=== PATIENT | female | born 1940 | race Hispanic/Latino ===

== ENCOUNTER 2017-02-14 13:27 | Observation (INO) | payer MEDICARE, OTHER ==
[2017-02-14 14:08] LABS: #Basophils 0.1 thou/uL (0.0-0.2); #Eosinphils 0.1 thou/uL (0.0-0.7); #Lymphocytes 1.9 thou/uL (1.20-3.40); #Monocytes 0.8 thou/uL (0.11-0.59); #Neutrophils 6.7 thou/uL (1.40-6.50); %Basophils 0.7 % (0.0-1.0); %Eosinophils 1.2 % (0.0-10.0); %Lymphocytes 19.5 % (21.0-51.0); %Monocytes 8.3 % (0.0-10.0); %Neutrophils 70.3 % (42.0-75.0); Hemoglobin 13.5 g/dL (12.0-16.0); Mean Corpuscular HGB CONC 32.7 g/dL (32.0-36.0); Mean Corpuscular Hemoglobin 31.1 pg (27.0-31.0); Mean Corpuscular Volume 95.2 fl (81.0-99.0); Mean Platelet Volume 8.2 fL (7.4-10.4); Platelet Count 285 thou/uL (130-400); RBC Distribution Width 12.3 % (11.5-14.5); Red Blood Cell (RBC) Count 4.34 mill/uL (4.20-5.40); White Blood Cell (WBC) Count 9.6 thou/uL (4.8-10.8)
[2017-02-14 14:34] LABS: ALT (SGPT) 17 U/L (8-55); AST (SGOT) 13 U/L (5-34); Albumin 3.3 g/dL (3.4-4.8); Alkaline Phosphatase 88 U/L (40-150); Anion Gap 12 mmol/L (10-20); BUN (Urea Nitrogen) 20 mg/dL (9.8-20.1); Bilirubin, Total 0.4 mg/dL (0.2-1.2); Calc. Creatinine Clearance 0 mL/min (70-130); Calcium 8.5 mg/dL (7.8-10.44); Carbon Dioxide 23 mmol/L (23-31); Chloride 105 mmol/L (98-107); Estimated GFR-MDRD 36; Globulin 3.3 g/dL (2.4-3.5); Glucose 260 mg/dL (83-110); Potassium 4.1 mmol/L (3.5-5.1); Protein, Total 6.6 g/dL (6.0-8.3); Sodium 136 mmol/L (136-145)
--- NOTE | 2017-02-14 14:35 | CT ---
CT HEAD NONCONTRAST: History: Altered mental status. Syncope. Comparison: 09-15-16 FINDINGS: There is no evidence of acute intracranial hemorrhage or infarct. Diffuse cortical atrophy and promin ent chronic ischemic small vessel disease are again demonstrated. There is no mass effect or shift of midline structures. Mild mucosal thickening is apparent within the ethmoid air cells. IMPRESSION: No acute intracranial abnormalities are demonstrated on noncontrast CT head. POS: [facility]
[2017-02-14 14:36] LABS: CKMB 1.1 ng/mL (0-6.6); Troponin I 0.011 ng/mL (< 0.028)
[2017-02-14 18:04] LABS: CKMB 1.7 ng/mL (0-6.6); Troponin I Less than 0.010 ng/mL (< 0.028)
[2017-02-14 19:01] VITALS: BMI 42.0
[2017-02-14] MEDS: Sodium Chloride 0.45% 1,000 ML IV SCH (20:13)
[2017-02-14 21:17] LABS: Troponin I 0.016 ng/mL (< 0.028)
[2017-02-15] MEDS ORDERED: Dextrose 5% in Water 1,000 ML IV PRN (02:46)
[2017-02-15] MEDS ORDERED: HumaLOG 300 UNITS/3 ML VIAL SC PRN ×2 (02:46)
[2017-02-15] MEDS ORDERED: Dextrose 50% Abboject 50 ML SYRINGE IVP PRN (02:46)
--- NOTE | 2017-02-15 03:26 | HP ---
CHIEF COMPLAINT: Syncope. HISTORY OF PRESENT ILLNESS: She is a 76-year-old woman has hypertension. She brought in because of witnessed syncope passed out for a few minutes in the chair, blood pressure running low. She brought in the ER, blood pressure running 90/71, pulse 77, respiration 20. She was given IV fluid in the ER and placed on 2 liter oxygen. She improved. PAST MEDICAL HISTORY: History of hypertension, congestive heart failure, diabetes. PAST SURGICAL HISTORY: History of cholecystectomy and appendectomy. SOCIAL HISTORY: She denies alcohol and drug, no smoking history. REVIEW OF SYSTEMS: Constitutional: Denies any chills, no fatigue, no fever. No eye pain or any vis ion changes. ENT: Negative for rhinorrhea. Sore throat. Cardiovascular: Negative for any chest p ain, palpitations. Respirations: Cough. No short of breath. Gastrointestinal: No diarrhea, no na usea, no vomiting. Musculoskeletal: No back pain. Neurological: She is wheelchair bound. No peres ge in mental status. Hematology: No rash. PHYSICAL EXAMINATION: GENERAL: When examined her she is an elderly woman nondistressed. VITAL SIGNS: Blood pressure 111/60, pulse 67, respiration 14. Sats 98 on 2 liters oxygen. HEENT: Head is atraumatic, normocephalic. Pupils are round, reactive. Extraocular muscles intact. Ear, nose, throat normal. Tongue mucosa moist. Neck: Supple, no JVD, no thyromegaly. RESPIRATORY: Chest, normal vascular breathing, no added sounds, no wheezing, no crackles. CARDIOVASCULAR: S1, S2 audible. No S3, S4. ABDOMEN: Soft, bowel sounds audible, no organomegaly. No nontender, no guarding, rigidity. EXTREMITIES: No pedal edema, no cyanosis or clubbing. CRANIAL NERVES SYSTEM: Alert x2. NEUROLOGIC: No focal deficit. PSYCHIATRIC: Affect normal. LABORATORY DATA: EKG shows rates at 72. First AV block, ST segment normal. Troponin 0.011, CK-MB 1 .1. Sodium 136, potassium 4.1, chloride 23, carbon dioxide 12 , anion gap is 20, creatinine 1.43, BU N 20, creatinine 36, glucose 260, calcium 8.5, bilirubin 0.4, albumin 3.3, AST 13, ALT 17, total bili cheung is 9.6, hemoglobin is 30.5, hematocrit is 41.3, MCV 95. ASSESSMENT AND PLAN: Syncope, etiology could be hypovolemia with acute kidney injury, so given IV fl uid. Follow up BMP and serial troponin, less hypertension. We are holding lisinopril. Continue to monitor her blood pressure, IV fluid.
[2017-02-15] MEDS: Sodium Chloride 0.45% 1,000 ML IV SCH ×2 (03:51→12:58)
[2017-02-15] MEDS ORDERED: Acetaminophen 325 MG TAB PO PRN (03:53)
[2017-02-15 05:41] LABS: Anion Gap 10 mmol/L (10-20); BUN (Urea Nitrogen) 21 mg/dL (9.8-20.1); Calc. Creatinine Clearance 105 mL/min (70-130); Calcium 8.6 mg/dL (7.8-10.44); Carbon Dioxide 24 mmol/L (23-31); Chloride 108 mmol/L (98-107); Estimated GFR-MDRD 66; Glucose 194 mg/dL (83-110); Sodium 138 mmol/L (136-145)
--- NOTE | 2017-02-15 13:14 | PDOC.PN ---
- Subjective Encounter Start Date: 02/15/17 Encounter Start Time: 13:13 Subjective: Pt seen and examined for Syncope, Now c/o chest pain, not feeling good -: pt feels anxiuos,denies any N/V/D - Objective MAR Reviewed: Yes Vital Signs & Weight: Vital Signs (12 hours) Temp Pulse Resp BP BP BP Pulse Ox 02/15/17 12:50 169/67 H 02/15/17 11:20 97.9 F 69 20 173/82 H 98 02/15/17 08:00 97.3 F L 63 16 02/15/17 07:31 97.3 F L 63 16 166/72 H 97 02/15/17 03:40 60 18 168/73 H 98 Weight Weight 253 lb I&O: 02/14/17 02/15/17 02/16/17 06:59 06:59 06:59 Intake Total 2150 Output Total 500 Balance 1650 Result Diagrams: 02/14/17 14:00 02/15/17 05:03 Phys Exam - Physical Examination HEENT: PERRLA, moist MMs, sclera anicteric, TM's clear, oral pharynx no lesions , 2+ tonsils Neck: no nodes, no JVD, supple, full ROM Respiratory: no wheezing, no rales, no rhonchi, wheezing present, clear to auscultation bilateral Cardiovascular: RRR, no significant murmur, no rub, gallop, irregular Gastrointestinal: soft, non-tender, no distention, positive bowel sounds Musculoskeletal: no edema, pulses present, edema present Psychiatric: normal affect, A&O x 3 Skin: no rash, normal turgor, cap refill <2 seconds Dx/Plan (1) Syncope and collapse Code(s): R55 - SYNCOPE AND COLLAPSE Status: Acute (2) CKD (chronic kidney disease) stage 3, GFR 30-59 ml/min Status: Acute (3) Chest pain Code(s): R07.9 - CHEST PAIN, UNSPECIFIED Status: Acute - Plan cont current plan of care, plan discussed w/ family, DVT proph w/lovenox 1) Syncope Etiology Hypovolemia, IV Fluids -: 2) JOSÉ , improved with IV Fluids -: 3) Chest pain, Cardiology consulted * .
[2017-02-15] MEDS ORDERED: Ketorolac Tromethamine 30 MG/ML VIAL IVP SCH (16:15)
--- NOTE | 2017-02-15 19:02 | CON ---
DATE OF CONSULTATION: 02/15/2017 PRIMARY MANAGER MANAGED BACKUP SERVICES: None. REASON FOR CONSULTATION: Syncope. HISTORY OF PRESENT ILLNESS: Ms. Greenfield is a very pleasant 76-year-old woman, who has now been seen and evaluated by Cardiology in the past. She states that she was in her Hoveround chair when she had a syncopal episode. She then had nausea and vomiting. She does not know which came first. She is unsure whether the nausea preceded the vomiting or some of the syncope preceded the vomiting vice rex sa. No chest pain or pressure noted. No other associated ameliorating or exacerbating factors prese nt. Her EKG appears to be within normal limits. PAST MEDICAL HISTORY: Hypertension, diabetes mellitus, congestive heart failure. PAST SURGICAL HISTORY: Cholecystectomy and appendectomy. SOCIAL HISTORY: No current tobacco or alcohol use. HOME MEDICATIONS: Include clonidine, lisinopril, Levemir, gabapentin, carvedilol. REVIEW OF SYSTEMS: Ten-point review of systems is reviewed and as above, otherwise negative. PHYSICAL EXAMINATION: VITAL SIGNS: Blood pressure 155/69, pulse 76, temperature 98.1. GENERAL: Patient is a pleasant female who is in no acute distress. The patient appears her stated a ge. NEUROLOGIC: The patient is alert and oriented times 3 with no focal neurologic deficits. HEENT: Sclerae without icterus. Mouth has moist mucous membranes with normal pallor. NECK: No JVD. Carotid upstroke brisk. No bruits bilaterally. LUNGS: Clear to auscultation with unlabored respirations. BACK: No scoliosis or kyphosis. CARDIAC: Regular rate and rhythm with normal S1 and S2. No S3 or S4 noted. No significant rubs, mu rmurs, thrills, or gallops noted throughout the precordium. PMI is not displaced. There is no antonio ternal heave. ABDOMEN: Soft, nontender, nondistended. No peritoneal signs present. No hepatosplenomegaly. No ab normal striae. EXTREMITIES: 2+ femoral and 2+ dorsalis pedis pulses. No cyanosis, clubbing, or edema. SKIN: No gross abnormalities. PERTINENT LABORATORY DATA: Hemoglobin 13.5, hematocrit 41.3. IMAGING: EKG; normal sinus rhythm, normal EKG. IMPRESSION: 1. Syncope. 2. Nausea, vomiting. 3. Atypical chest pain. RECOMMENDATIONS: Ms. Greenfield's EKG appears to be within normal limits. She is on 2 medications that may have potentiallyl caused the bradycardiac episode, which are clonidine and Coreg. At this point , we would recommend decrease in clonidine to 0.1 mg one p.o. q.a.m. and watching and monitoring her blood pressure. We would recommend Norvasc in place of clonidine. We would monitor rhythm overnight . We would recommend an echo Doppler to assess LV function. If her LVEF is normal and rate overnigh t is stable, we would recommend 3-week outpatient event recorder.
[2017-02-15] MEDS ORDERED: cloNIDine 0.1 MG TAB PO PRN (19:55)
[2017-02-15] MEDS: Gabapentin 300 MG CAP PO SCH (20:04)
[2017-02-15] MEDS: Lisinopril 10 MG TAB PO SCH (20:04)
[2017-02-15] MEDS: Carvedilol 3.125 MG TAB PO SCH (20:04)
[2017-02-16] MEDS: Lisinopril 10 MG TAB PO SCH (08:16)
[2017-02-16] MEDS: Carvedilol 3.125 MG TAB PO SCH (08:16)
[2017-02-16] MEDS: Gabapentin 300 MG CAP PO SCH (08:16)
[2017-02-16 11:16] VITALS: BP 176/81; TEMP 97.6
--- NOTE | 2017-02-16 14:34 | PRG ---
DATE OF SERVICE: 02/16/2017 SUBJECTIVE: Ms. Greenfield is doing well. No chest pain or pressure noted. No recurrent syncope. She did tilt from 170 down to 150 upon standing. She was asymptomatic. PHYSICAL EXAMINATION: VITAL SIGNS: Blood pressure 150/69, pulse 76, temperature 97.6. LUNGS: Clear to auscultation. CARDIAC: Regular rate and rhythm. ABDOMEN: Soft, nontender, nondistended. EXTREMITIES: No edema. IMPRESSION: Syncope. RECOMMENDATIONS: Etiology is unknown. She has been on clonidine and Coreg. This may have had a bra dycardic induced episode. I have decreased her carvedilol in addition to her clonidine. I have adde d Norvasc for her blood pressure. This may also be related to dehydration versus orthostatic hypoten flavio. A drop from 170 to 150 should not cause symptoms though. Would recommend a 3-week event recor lidia to assess for dysrhythmias. We will follow Ms. Greenfield in the next 1-2 weeks.
[2017-02-16] MEDS ORDERED: cloNIDine 0.2 MG TAB PO SCH (15:00)
[2017-02-16] MEDS ORDERED: Carvedilol 3.125 MG TAB PO SCH (21:00)
[2017-02-16] MEDS ORDERED: Lisinopril 20 MG TAB PO SCH (21:00)
[2017-02-16] MEDS ORDERED: GABAPENTIN 300 MG PO SCH (21:00)
[2017-02-16] MEDS ORDERED: Non-Formulary Item 1 EACH (Levemir Flexpen [Levemir Flexpen] 40 UNITS) SQ SCH (21:00)
--- NOTE | 2017-02-16 22:38 | DIS ---
DATE OF ADMISSION: 02/14/2017 DATE OF DISCHARGE: 02/16/2017 ADMITTING DIAGNOSES: 1. Syncopal episode. 2. Chest pain. 3. Acute kidney injury. HOSPITAL COURSE: She is a 76-year-old woman, came in because she passed out and she found to have dehydration in the hospital stay. When she came in, her kidney function was high. Creatinine was 1.43, BUN 20, and glucose 260, so came to the hospital, gave some IV fluids. She improved creatinine to 0.84. Cardiology consult for chest pain. The echocardiogram was done and that came back normal. Plan to discharge home. PHYSICAL EXAMINATION DISCHARGE VITAL SIGNS: Pulse 76, blood pressure 153/69, respiration 20, temperature 98.5. GENERAL: Alert and oriented. NECK: Supple, no JVD. CHEST: Chest has normal respiratory sounds. CARDIOVASCULAR: S1, S2 audible. No S3, S4. ABDOMEN: Soft. EXTREMITIES: No pedal edema. LABORATORY: Lab shows glucose 130, potassium 4.0, chloride 108, BUN 21, creatinine 0.8, glucose 194. Troponin less than 0.01. Echocardiogram normal. DISCHARGE MEDICATIONS: Will be Coreg 3.125 mg twice daily, clonidine 0.1 t.i.d. , gabapentin 300 mg b.i.d., insulin sliding scale, lisinopril 10 mg every day, _ ____ 20 mg b.i.d. FINAL DIAGNOSES: 1. Syncope secondary to hypovolemia 2. Acute kidney injury improved 3. Chest pain. OH is ruled out 4. Hypertension. 5. Type 2 diabetes. PLAN: Discharge home and to follow with his PCP in 1 week. BREANA
== END 2017-02-16 12:14 | disposition home or self-care (01) ==
LOC: ERS 13:27 → 2SW 18:46
PROVIDERS: ADMIT Family Medicine; ATTEND Family Medicine
DX: E86.1 Hypovolemia (principal); R55 Syncope and collapse; N17.9 Acute kidney failure, unspecified; R07.9 Chest pain, unspecified; I13.0 Hypertensive heart and chronic kidney disease with heart failure and stage 1 through stage 4 chronic kidney disease, or unspecified chronic kidney disease; E11.22 Type 2 diabetes mellitus with diabetic chronic kidney disease; N18.3 Chronic kidney disease, stage 3 (moderate); I50.9 Heart failure, unspecified; Z79.4 Long term (current) use of insulin; Z79.899 Other long term (current) drug therapy; Z88.2 Allergy status to sulfonamides; Z88.5 Allergy status to narcotic agent; Z91.013 Allergy to seafood; Z91.041 Radiographic dye allergy status; Z90.49 Acquired absence of other specified parts of digestive tract; Z90.89 Acquired absence of other organs; Z90.710 Acquired absence of both cervix and uterus; Z98.890 Other specified postprocedural states; Z99.3 Dependence on wheelchair
CPT/HCPCS: 70450; 80048; 80053; 82553 ×2; 82962 ×2; 84484 ×2; 85025; 93005; 93306; 94760; 96361 ×3; 96374; 99285; G0378; 36415; 36416; 96360; J1885

== ENCOUNTER 2017-05-06 10:18 | Emergency (ER) | payer MEDICARE, OTHER ==
[2017-05-06 10:53] LABS: #Basophils 0.1 thou/uL (0.0-0.2); #Eosinphils 0.2 thou/uL (0.0-0.7); #Monocytes 0.7 thou/uL (0.11-0.59); #Neutrophils 5.1 thou/uL (1.40-6.50); %Basophils 0.7 % (0.0-1.0); %Eosinophils 2.6 % (0.0-10.0); %Lymphocytes 25.2 % (21.0-51.0); %Monocytes 8.6 % (0.0-10.0); %Neutrophils 62.8 % (42.0-75.0); Hemoglobin 11.9 g/dL (12.0-16.0); Mean Corpuscular HGB CONC 32.9 g/dL (32.0-36.0); Mean Corpuscular Hemoglobin 30.6 pg (27.0-31.0); Mean Corpuscular Volume 92.9 fl (81.0-99.0); Mean Platelet Volume 7.7 fL (7.4-10.4); Platelet Count 264 thou/uL (130-400); RBC Distribution Width 12.9 % (11.5-14.5); White Blood Cell (WBC) Count 8.1 thou/uL (4.8-10.8)
[2017-05-06 11:06] LABS: ALT (SGPT) 12 U/L (8-55); AST (SGOT) 13 U/L (5-34); Albumin 3.2 g/dL (3.4-4.8); Alkaline Phosphatase 92 U/L (40-150); Anion Gap 13 mmol/L (10-20); BUN (Urea Nitrogen) 27 mg/dL (9.8-20.1); Bilirubin, Total 0.4 mg/dL (0.2-1.2); Calc. Creatinine Clearance 0 mL/min (70-130); Carbon Dioxide 18 mmol/L (23-31); Chloride 109 mmol/L (98-107); Estimated GFR-MDRD 50; Globulin 3.3 g/dL (2.4-3.5); Glucose 184 mg/dL (83-110); Potassium 4.3 mmol/L (3.5-5.1); Protein, Total 6.5 g/dL (6.0-8.3); Sodium 136 mmol/L (136-145)
[2017-05-06 11:11] LABS: CKMB 1.1 ng/mL (0-6.6); Troponin I Less than 0.010 ng/mL (< 0.028)
[2017-05-06] MEDS ORDERED: Ondansetron HCl/PF 4 MG/2 ML Vial ONE (13:00)
--- NOTE | 2017-05-06 13:24 | RAD ---
CHEST 1 VIEW: HISTORY: A 76-year-old female with a history of chest pain. COMPARISON: 09/06/16. FINDINGS: Atherosclerosis of the aorta with ectasia. Old granulomatous disease. Monitor leads overlie the giuseppe st. No confluent pneumonia, overt edema, or pleural effusion. IMPRESSION: No acute intrathoracic disease. Atherosclerosis of the aorta. Stable from prior study. POS: [facility]
--- NOTE | 2017-05-06 14:10 | CT ---
BRAIN CT WIHTOUT IV CONTRAST: HISTORY: A 76-year-old female with a history of syncope. History of CVA 3 weeks ago with chest pain, weakness , tiredness. COMPARISON: 02/14/17. FINDINGS: Atrophy and chronic white matter ischemic changes are noted. No focal mass or midline shift. No intr a- or extraaxial hemorrhage. Sinuses and mastoids are clear of acute process. IMPRESSION: Stable atrophy and chronic white matter ischemic change. No mass or bleed or other acute process. POS: [facility]
[2017-05-06 14:27] LABS: CKMB 1.5 ng/mL (0-6.6); Troponin I Less than 0.010 ng/mL (< 0.028)
--- NOTE | 2017-05-06 16:03 | ULT ---
BILATERAL LOWER EXTREMITY VENOUS DUPLEX ULTRASOUND INCLUDING COLOR AND SPECTRAL DOPPLER IMAGIN05/06/17 HISTORY: 76-year-old female with history of syncope and congestive heart failure. COMPARISON: 05/13/13. FINDINGS: Exam includes color and spectral doppler imaging. Exam performed from groin to ankle including visualized greater saphenous, common femoral, superficia l femoral, profunda femoral, popliteal, trifurcation, and posterior tibial vein regions. Phasic flow with normal compressibility and normal augmentation at all levels. No intraluminal thrombus. Minimal areas of flow reversal suggesting some valvular incompetence. IMPRESSION: No evidence for deep venous thrombosis. POS: [facility]
--- NOTE | 2017-05-06 17:32 | NM ---
VENTILATION PERFUSION LUNG SCAN 05/06/17 HISTORY: 76-year-old female with history of chest pain. Patient inhaled approximately 13.0 millicuries Xenon 133 gas. There is slight trapping in the lower l jen zones bilaterally. PERFUSION LUNG SCAN: Patient was injected with 6.6 millicuries technetium 99m MAA intravenously. No segmental or large are as of absolute perfusion defect. IMPRESSION: Findings consistent with a very low probability of acute PE. POS: [facility]
== END 2017-05-06 16:00 | disposition home or self-care (01) ==
LOC: ERS 10:18
DX: R07.9 Chest pain, unspecified (principal); R53.1 Weakness; I11.0 Hypertensive heart disease with heart failure; I50.9 Heart failure, unspecified; E11.9 Type 2 diabetes mellitus without complications; Z79.899 Other long term (current) drug therapy
CPT/HCPCS: 51701; 70450; 71045; 78582; 80053; 82553 ×2; 83880; 84484 ×2; 85025; 85379; 93005; 93970; 96361; 96374; 99285; A9540; A9558; 36415; A4353; J2405

== ENCOUNTER 2018-12-13 21:02 | Observation (INO) | payer MEDICARE, OTHER ==
--- NOTE | 2018-12-13 22:22 | CT ---
NONCONTRAST CT HEAD: 12/13/18 HISTORY: Headache for three days. COMPARISON: 05/06/17. FINDINGS: Again noted is diminished attenuation of the periventricular white matter which is nonspecific but li caesar related to advanced chronic small vessel ischemic change. There is no evidence of an acute corti maximiliano infarction, hemorrhage, mass effect, or midline shift. Mild cerebral volume loss is present. The ventricular system is normal in size, shape and position for the degree of sulcal atrophy. Mucosal thickening is seen in the ethmoidal air cells bilaterally. The mastoid air cells are clear. Calvarial structures have a normal appearance. IMPRESSION: No acute intracranial abnormality is demonstrated. POS: [facility]
[2018-12-13 22:38] LABS: #Eosinphils 0.4 thou/uL (0.0-0.7); #Lymphocytes 1.9 thou/uL (1.20-3.40); #Monocytes 0.8 thou/uL (0.11-0.59); #Neutrophils 5.6 thou/uL (1.40-6.50); %Basophils 0.5 % (0.0-1.0); %Eosinophils 4.2 % (0.0-10.0); %Lymphocytes 22.1 % (21.0-51.0); %Monocytes 8.6 % (0.0-10.0); %Neutrophils 64.6 % (42.0-75.0); Hemoglobin 12.4 g/dL (12.0-16.0); Mean Corpuscular HGB CONC 32.1 g/dL (32.0-36.0); Mean Corpuscular Hemoglobin 29.2 pg (27.0-31.0); Mean Corpuscular Volume 91.2 fL (78.0-98.0); Mean Platelet Volume 7.8 fL (7.4-10.4); Platelet Count 289 thou/uL (130-400); RBC Distribution Width 12.8 % (11.5-14.5); Red Blood Cell (RBC) Count 4.25 mill/uL (4.20-5.40); White Blood Cell (WBC) Count 8.6 thou/uL (4.8-10.8)
[2018-12-13 22:59] LABS: ALT (SGPT) 13 U/L (8-55); AST (SGOT) 14 U/L (5-34); Albumin 3.5 g/dL (3.4-4.8); Alkaline Phosphatase 119 U/L (40-110); Anion Gap 11 mmol/L (10-20); BUN (Urea Nitrogen) 18 mg/dL (9.8-20.1); Bilirubin, Total 0.4 mg/dL (0.2-1.2); Calc. Creatinine Clearance 0 mL/min (70-130); Calcium 8.8 mg/dL (7.8-10.44); Carbon Dioxide 23 mmol/L (23-31); Chloride 109 mmol/L (98-107); Estimated GFR-MDRD 72; Glucose 119 mg/dL (83-110); Potassium 3.8 mmol/L (3.5-5.1); Protein, Total 7.5 g/dL (6.0-8.3); Sodium 139 mmol/L (136-145)
[2018-12-13] MEDS ORDERED: diphenhydrAMINE 50 MG/ML VIAL ONE (23:13)
[2018-12-13] MEDS ORDERED: Prochlorperazine 10 MG/2 ML VIAL IVP SCH (23:30)
[2018-12-14] MEDS ORDERED: Aspirin Chewable 81 MG TAB ONE (00:13)
[2018-12-14] MEDS ORDERED: Acetaminophen 1,000 MG in Premix Bag 1 BAG IVPB SCH (00:30)
[2018-12-14 01:42] LABS: PTT 29.9 SEC (22.9-36.1); Prothrombin Time 13.6 SEC (12.0-14.7)
[2018-12-14] MEDS ORDERED: Acetaminophen 650 MG Suppository PR PRN (03:16)
[2018-12-14] MEDS ORDERED: Ondansetron ODT 4 MG TAB PO PRN (03:16)
[2018-12-14] MEDS ORDERED: Ondansetron PF 4 MG/2 ML Vial IVP PRN (03:16)
[2018-12-14 04:00] LABS: Troponin I Less than 0.010 ng/mL (< 0.028)
[2018-12-14] MEDS: Sodium Chloride 0.9% 1,000 ML IV SCH (04:01)
[2018-12-14] MEDS ORDERED: Dextrose 50% Abboject 50 ML SYRINGE SLOW IVP PRN (04:43)
[2018-12-14] MEDS ORDERED: HumaLOG 300 UNITS/3 ML VIAL SC PRN (04:43)
[2018-12-14] MEDS ORDERED: Dextrose 5% in Water 1,000 ML IV PRN (04:43)
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
[2018-12-14 06:26] LABS: #Basophils 0.1 thou/uL (0.0-0.2); #Eosinphils 0.4 thou/uL (0.0-0.7); #Lymphocytes 1.9 thou/uL (1.20-3.40); #Monocytes 0.7 thou/uL (0.11-0.59); #Neutrophils 4.1 thou/uL (1.40-6.50); %Eosinophils 5.3 % (0.0-10.0); %Lymphocytes 26.2 % (21.0-51.0); %Monocytes 10.1 % (0.0-10.0); %Neutrophils 57.4 % (42.0-75.0); Hemoglobin 12.4 g/dL (12.0-16.0); Mean Corpuscular HGB CONC 33.7 g/dL (32.0-36.0); Mean Corpuscular Hemoglobin 31.2 pg (27.0-31.0); Mean Corpuscular Volume 92.6 fL (78.0-98.0); Platelet Count 242 thou/uL (130-400); RBC Distribution Width 12.7 % (11.5-14.5); Red Blood Cell (RBC) Count 3.98 mill/uL (4.20-5.40); White Blood Cell (WBC) Count 7.2 thou/uL (4.8-10.8)
[2018-12-14 06:40] LABS: Anion Gap 12 mmol/L (10-20); BUN (Urea Nitrogen) 15 mg/dL (9.8-20.1); Calc. Creatinine Clearance 116 mL/min (70-130); Calcium 8.3 mg/dL (7.8-10.44); Carbon Dioxide 19 mmol/L (23-31); Cardiac Risk 3.9 (Less than 4.5); Chloride 113 mmol/L (98-107); Cholesterol 126 mg/dl (< 200 Desired); Estimated GFR-MDRD 79; Glucose 110 mg/dL (83-110); HDL Cholesterol 32 mg/dL (>60 Neg Risk); LDL Cholesterol, Calculated 78 mg/dL; Magnesium 1.7 mg/dL (1.6-2.6); Potassium 3.9 mmol/L (3.5-5.1); Sodium 140 mmol/L (136-145); Triglycerides 79 mg/dL (Less than 150)
[2018-12-14 06:43] LABS: Troponin I 0.014 ng/mL (< 0.028)
--- NOTE | 2018-12-14 08:46 | ULT ---
CAROTID ARTERIAL DOPPLER ULTRASOUND: 12/14/2018 HISTORY: Transient ischemic attack. TECHNIQUE: Multiplanar pate-scale sonographic imaging of the arterial structures of the neck obtained with color -flow and spectral analysis. FINDINGS: Antegrade blood flow and normal arterial wave-forms are documented within the carotid and vertebral s ystem bilaterally. VESSEL PEAK SYSTOLIC VELOCITY (cm per second) Right CCA 78 Right ICA 73 Right ECA 63 Left CCA 69 Left ICA 56 Left ECA 96 ICA/CCA ratio is or 0.9 on the right and 0.8 on the left. IMPRESSION: No hemodynamically significant stenosis on the basis of sonographic velocity criteria. Transcribed Date/Time: 12/14/2018 9:37 AM
[2018-12-14] MEDS: cloNIDine 0.1 MG TAB PO SCH ×4 (08:47→20:56)
[2018-12-14] MEDS: Gabapentin 300 MG CAP PO SCH ×4 (08:47→20:56)
[2018-12-14] MEDS: Carvedilol 6.25 MG TAB PO SCH ×3 (08:48→16:10)
[2018-12-14] MEDS: Lisinopril 20 MG TAB PO SCH ×3 (08:48→20:56)
[2018-12-14] MEDS: Famotidine/PF 20 mg/2ml Vial SLOW IVP SCH ×2 (08:48→20:56)
[2018-12-14] MEDS: Furosemide 20 MG TAB PO SCH ×3 (08:48→20:57)
[2018-12-14] MEDS: Atorvastatin Calcium 40 MG TAB PO SCH ×2 (08:48→08:54)
[2018-12-14] MEDS: Amlodipine 10 MG TAB PO SCH ×2 (08:48→08:53)
[2018-12-14] MEDS: Aspirin 81 mg Enteric Coated Tablet PO SCH ×2 (08:48→08:54)
[2018-12-14] MEDS ORDERED: FLU VACC TS2019-20(65YR UP)/PF 180 MCG/0.5 ML SYRINGE IM ONE (09:00)
[2018-12-14] MEDS: Acetaminophen 325 MG TAB PO PRN ×2 (12:31→20:56)
[2018-12-14] MEDS ORDERED: Lorazepam 2 MG/ML VIAL SLOW IVP PRN (14:53)
[2018-12-14 15:04] VITALS: BMI 41.3
--- NOTE | 2018-12-14 16:04 | PDOC.HOSPP ---
- Subjective Encounter Date: 12/14/18 Encounter Time: 16:02 Subjective: Ms. Greenfield was seen today in follow-up of severe headache. She denies any nausea or vomiting, no photophobia. She does not have any weakness in any extremities. - Objective Vital Signs & Weight: Vital Signs (12 hours) Temp Pulse Resp BP Pulse Ox 12/14/18 14:40 147/67 H 12/14/18 11:02 97.7 F 65 16 180/75 H 96 12/14/18 08:53 54 L 12/14/18 07:22 97.6 F 54 L 14 137/63 97 12/14/18 04:03 97.5 F L 56 L 18 140/61 96 Weight Admit Weight 250 lb Weight 248 lb 1.6 oz I&O: 12/13/18 12/14/18 12/15/18 06:59 06:59 06:59 Intake Total 204 Output Total 1000 1600 Balance -796 -1600 Result Diagrams: 12/14/18 06:15 12/14/18 06:15 Additional Labs: Accuchecks 12/14/18 12/14/18 10:31 06:16 POC Glucose 87 102 Hospitalist ROS - Medication Medications: Active Medications Generic Name Dose Route Start Last Admin Trade Name Freq PRN Reason Stop Dose Admin Acetaminophen 650 mg 12/14/18 03:16 12/14/18 12:31 Tylenol PO 650 mg Q4H PRN Administration Headache/Fever/Mild Pain (1-3) Amlodipine Besylate 10 mg 12/14/18 09:00 12/14/18 08:53 Norvasc PO Not Given DAILY [facility] Aspirin 81 mg 12/14/18 09:00 12/14/18 08:54 Ecotrin PO Not Given DAILY [facility] Atorvastatin Calcium 80 mg 12/14/18 09:00 12/14/18 08:54 Lipitor PO Not Given DAILY [facility] Clonidine 0.1 mg 12/14/18 09:00 12/14/18 12:32 Catapres PO 0.1 mg TID [facility] Administration Famotidine 20 mg 12/14/18 09:00 12/14/18 08:48 Pepcid SLOW IVP 20 mg Q12HR [facility] Administration Furosemide 20 mg 12/14/18 09:00 12/14/18 08:54 Lasix PO Not Given BID [facility] Gabapentin 600 mg 12/14/18 09:00 12/14/18 12:32 Neurontin PO 600 mg TID [facility] Administration Sodium Chloride 1,000 mls @ 65 mls/hr 12/14/18 03:30 12/14/18 04:01 Normal Saline 0.9% IV 1,000 mls .[id number] [facility] Administration Lisinopril 20 mg 12/14/18 09:00 12/14/18 08:54 Zestril PO Not Given BID [facility] - Exam Eye: PERRL, anicteric sclera Heart: RRR, no murmur, no gallops, no rubs, normal peripheral pulses Respiratory: CTAB, no wheezes, no rales, no ronchi, normal chest expansion, no tachypnea, normal percussion Gastrointestinal: soft, non-tender, non-distended, normal bowel sounds, no palpable masses, no hepatomegaly Extremities: no cyanosis, no clubbing, no edema Hosp A/P (1) Headache Code(s): R51 - HEADACHE Status: Acute (2) Hypertensive urgency Code(s): I16.0 - HYPERTENSIVE URGENCY Status: Acute (3) Diabetes 1.5, managed as type 2 Code(s): E13.9 - OTHER SPECIFIED DIABETES MELLITUS WITHOUT COMPLICATIONS Status: Chronic - Plan * Headache- ? etiology- await the MRI results * DM- blood glucose is stable * HTN- blood pressure is trending down
[2018-12-14] MEDS: Fioricet 325/50/40 mg Tablet PO PRN (17:59)
[2018-12-14] MEDS ORDERED: Non-Formulary Item 1 EACH (Levemir Flexpen [Levemir Flexpen] 40 UNITS) SQ SCH (21:00)
[2018-12-14] MEDS ORDERED: Insulin Glargine 40 UNITS in Pre-Filled Syringe 1 EACH SC SCH (21:00)
[2018-12-15] MEDS: Sodium Chloride 0.9% 1,000 ML IV SCH ×2 (00:30→14:24)
[2018-12-15] MEDS: Fioricet 325/50/40 mg Tablet PO PRN ×3 (01:48→12:20)
[2018-12-15] MEDS: Amlodipine 10 MG TAB PO SCH (08:02)
[2018-12-15] MEDS: Carvedilol 6.25 MG TAB PO SCH (08:02)
[2018-12-15] MEDS: Atorvastatin Calcium 40 MG TAB PO SCH (08:02)
[2018-12-15] MEDS: Aspirin 81 mg Enteric Coated Tablet PO SCH (08:02)
[2018-12-15] MEDS: cloNIDine 0.1 MG TAB PO SCH ×2 (08:02→14:24)
[2018-12-15] MEDS: Lisinopril 20 MG TAB PO SCH (08:03)
[2018-12-15] MEDS: Furosemide 20 MG TAB PO SCH ×2 (08:03→13:08)
[2018-12-15] MEDS: Gabapentin 300 MG CAP PO SCH ×2 (08:03→14:24)
[2018-12-15] MEDS: Famotidine/PF 20 mg/2ml Vial SLOW IVP SCH (08:04)
[2018-12-15] MEDS ORDERED: Ketorolac Tromethamine 30 MG/ML VIAL IVP SCH (12:15)
--- NOTE | 2018-12-15 12:15 | MRI ---
MRI BRAIN WITHOUT CONTRAST: Date: 12/15/18 HISTORY: TIA, headache. FINDINGS: Correlation is made with the CT brain of 12/13/18. No restricted diffusion is seen. There are changes of cortical atrophy and chronic small vessel ische jared disease. The ventricular size is appropriate and the basilar cisterns are patent. No evidence of acute infarct, hemorrhage, midline shift, or abnormal extra-axial fluid collections are seen. There i s mucosal disease in the paranasal sinuses. There is suggestion of an empty sella. IMPRESSION: No evidence of acute intracranial process. POS: [facility]
[2018-12-15 12:21] VITALS: BP 119/58; TEMP 97.2
[2018-12-15] MEDS ORDERED: Ketorolac Tromethamine 30 MG/ML VIAL ONE (12:25)
[2018-12-15] MEDS ORDERED: Prochlorperazine 10 MG/2 ML VIAL IVP SCH (14:30)
--- NOTE | 2018-12-15 20:31 | DIS ---
DATE OF ADMISSION: 12/14/2018 DATE OF DISCHARGE: 12/15/2018 DISCHARGE DIAGNOSES: 1. Tension headache, improved. 2. Hypertensive urgency, resolved. 3. Diabetes mellitus type 2, insulin requiring. CONSULTATIONS: None. PERTINENT LABORATORY AND X-RAY FINDINGS: Troponin I negative x3. BNP 29. Total cholesterol 126, triglyceride 79, HDL 32, LDL 78. CBC within normal limits. ESR 50. CT of the brain without contrast dated 12/13/2018, showed no acute intracranial process. MRI of the brain dated 12/15/2018, showed no acute intracranial process. Carotid Doppler study dated 12/14/2018, showed no hemodynamically significant stenosis. 2D transthoracic echocardiogram dated 12/15/2018, showed ejection fraction 55% to 60%. Diastolic dysfunction. Moderate left atrial enlargement. HOSPITAL COURSE: The patient was initially observed on the telemetry unit after presenting with headache. The patient was also noted with concomitant elevated blood pressures in the context of headache and treated for hypertensive urgency. Due to the patient's persistent symptoms and difficult to control headache, the patient underwent general stroke protocol with MRI and CT imaging of the brain. No focal evidence of a CVA or acute intracranial process was identified. The patient received IV and oral pain control with improvement in overall headache intensity by the time of discharge. The patient was ruled out for focal neurologic event as well as ruled out for evidence of TIA. The patient remained clinically stable during the hospital course, tolerating regular oral intake with stable vital signs. I have examined the patient at the time of discharge and discussed followup instructions. The patient verbalized understanding and in agreement, ready for discharge on 12/15/2018. DISCHARGE MEDICATIONS: 1. Amlodipine 10 mg p.o. daily. 2. Lipitor 80 mg p.o. daily. 3. Carvedilol 6.25 mg p.o. b.i.d. 4. Clonidine 0.1 mg p.o. t.i.d. 5. Lasix 20 mg p.o. b.i.d. 6. Gabapentin 600 mg p.o. t.i.d. 7. Levemir 40 units subcutaneously at bedtime. 8. Lisinopril 20 mg p.o. b.i.d.. 9. Compazine 10 mg p.o. q.6 hours p.r.n. headache. FOLLOWUP: The patient may follow up with her primary care provider, Dr. Dixon Ovalle within 7 days of discharge. CONDITION ON DISCHARGE: Stable. ACTIVITY: Ad-evgeny. DIET: ADA and heart healthy. CODE STATUS: Full. DISPOSITION: Home on 12/15/2018. Job ID: [id number]
== END 2018-12-15 16:13 | disposition home or self-care (01) ==
LOC: ERS 21:02 → 2SW 12-14 01:54
PROVIDERS: ADMIT Internal Medicine; ATTEND Internal Medicine
DX: G44.209 Tension-type headache, unspecified, not intractable (principal); I16.0 Hypertensive urgency; I11.0 Hypertensive heart disease with heart failure; I50.9 Heart failure, unspecified; E11.9 Type 2 diabetes mellitus without complications; Z79.4 Long term (current) use of insulin; Z79.899 Other long term (current) drug therapy; Z86.73 Personal history of transient ischemic attack (TIA), and cerebral infarction without residual deficits; Z88.2 Allergy status to sulfonamides; Z88.5 Allergy status to narcotic agent; Z91.013 Allergy to seafood; Z91.041 Radiographic dye allergy status; Z99.3 Dependence on wheelchair
CPT/HCPCS: 70450; 70551; 80048; 80053; 80061 ×2; 82962 ×2; 83735; 83880; 84484 ×2; 85025 ×2; 85610; 85652; 85730; 86140; 93306; 93880; 96361 ×3; 96365; 96375 ×3; 96376 ×2; 99285; G0378 ×3; 36415; 36416; J0131; J0780; J1200; J1815; J1885; Q0162; S0028

== ENCOUNTER 2019-09-14 11:27 | Emergency (ER) | payer MEDICARE ==
[2019-09-14 12:03] LABS: #Monocytes 0.6 thou/uL (0.11-0.59); #Neutrophils 4.4 thou/uL (1.40-6.50); %Basophils 0.3 % (0.0-1.0); %Eosinophils 0.4 % (0.0-10.0); %Lymphocytes 15.9 % (21.0-51.0); %Monocytes 9.3 % (0.0-10.0); %Neutrophils 74.1 % (42.0-75.0); Hemoglobin 13.4 g/dL (12.0-16.0); Mean Corpuscular HGB CONC 33.1 g/dL (32.0-36.0); Mean Corpuscular Hemoglobin 30.5 pg (27.0-31.0); Mean Platelet Volume 8.9 fL (7.4-10.4); Platelet Count 176 thou/uL (130-400); RBC Distribution Width 13.1 % (11.5-14.5); Red Blood Cell (RBC) Count 4.41 mill/uL (4.20-5.40)
[2019-09-14 12:38] LABS: ALT (SGPT) 25 U/L (8-55); AST (SGOT) 38 U/L (5-34); Albumin 3.5 g/dL (3.4-4.8); Alkaline Phosphatase 99 U/L (40-110); Anion Gap 12 mmol/L (10-20); BUN (Urea Nitrogen) 19 mg/dL (9.8-20.1); Bilirubin, Total 0.4 mg/dL (0.2-1.2); Calc. Creatinine Clearance 0 mL/min (70-130); Calcium 8.5 mg/dL (7.8-10.44); Carbon Dioxide 22 mmol/L (23-31); Chloride 108 mmol/L (98-107); Estimated GFR-MDRD 46; Globulin 4.2 g/dL (2.4-3.5); Glucose 167 mg/dL (83-110); Potassium 5.4 mmol/L (3.5-5.1); Protein, Total 7.7 g/dL (6.0-8.3); Sodium 137 mmol/L (136-145)
--- NOTE | 2019-09-14 12:38 | CT ---
CT OF THE BRAIN WITHOUT CONTRAST: INDICATION: History of hypotension and generalized weakness. COMPARISON: Prior CT of the brain dated 12/13/2018. 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 No defi nite acute infarct, hemorrhage, or hydrocephalus is present. No midline shift is evident. Paranasal sinuses and mastoid air cells are clear. IMPRESSION: No acute intracranial abnormality. POS: [facility]
[2019-09-14 13:25] LABS: Bacteria/HPF None Seen HPF (None Seen); Bilirubin Negative (Negative); Blood, Urine Negative (Negative); Clarity Clear (Clear); Glucose, Urine (Dipstick) Normal (Negative); Ketone, Urine Negative (Negative); Leukocyte Negative Leu/uL (Negative); Mucous/LPF 1+ LPF (<2+); Nitrite Negative (Negative); Protein, Urine (Dipstick) 30 mg/dL (Neg-Trace); RBC/HPF 0-3 HPF (0-3); Specific Gravity, Urine 1.019 (1.002-1.036); Urobilinogen Normal mg/dL (Less than 2)
== END 2019-09-14 15:20 | disposition home or self-care (01) ==
LOC: ERS 11:27
DX: I95.9 Hypotension, unspecified (principal); I11.0 Hypertensive heart disease with heart failure; I50.9 Heart failure, unspecified; E11.9 Type 2 diabetes mellitus without complications; Z79.4 Long term (current) use of insulin; Z86.73 Personal history of transient ischemic attack (TIA), and cerebral infarction without residual deficits; Z79.899 Other long term (current) drug therapy
CPT/HCPCS: 36416; 51701; 70450; 80053; 81003; 81015; 84484; 85025; 93005; 96360

== ENCOUNTER 2022-05-01 17:53 | Emergency (ER) | payer MEDICARE, OTHER ==
[2022-05-01 20:07] LABS: #Eosinphils 0.3 thou/uL (0.0-0.7); #Lymphocytes 2.3 thou/uL (1.20-3.40); #Monocytes 0.7 thou/uL (0.11-0.59); #Neutrophils 4.9 thou/uL (1.40-6.50); %Basophils 0.5 % (0.0-1.0); %Eosinophils 4.1 % (0.0-10.0); %Lymphocytes 27.8 % (21.0-51.0); %Monocytes 8.3 % (0.0-10.0); %Neutrophils 59.2 % (42.0-75.0); Hemoglobin 10.8 g/dL (12.0-16.0); Mean Corpuscular HGB CONC 32.4 g/dL (32.0-36.0); Mean Corpuscular Hemoglobin 26.6 pg (27.0-31.0); Mean Platelet Volume 9.9 fL (7.4-10.4); Platelet Count 217 10x3/uL (130-400); RBC Distribution Width 22.6 % (11.5-14.5); Red Blood Cell (RBC) Count 4.05 mill/uL (4.20-5.40); White Blood Cell (WBC) Count 8.2 10x3/uL (4.8-10.8)
[2022-05-01 20:16] LABS: ALT (SGPT) 16 U/L (8-55); AST (SGOT) 19 U/L (5-34); Albumin 3.5 g/dL (3.4-4.8); Alkaline Phosphatase 145 U/L (40-110); Anion Gap 13 mmol/L (10-20); BUN (Urea Nitrogen) 25 mg/dL (9.8-20.1); Bilirubin, Total 0.2 mg/dL (0.2-1.2); Calc. Creatinine Clearance 0 mL/min (70-130); Calcium 8.5 mg/dL (7.8-10.44); Carbon Dioxide 21 mmol/L (23-31); Chloride 109 mmol/L (98-107); Estimated GFR 65; Globulin 3.4 g/dL (2.4-3.5); Glucose 140 mg/dL (83-110); Potassium 4.2 mmol/L (3.5-5.1); Protein, Total 6.9 g/dL (5.8-8.1); Sodium 139 mmol/L (136-145)
[2022-05-01 20:28] LABS: Anisocytosis SLIGHT = 6-15 cells (100X) (0-5/hpf); Burr Cells SLIGHT = 2-5 cells (100X) (0-1/hpf); MDiff Complete? YES; Ovalocytes SLIGHT = 2-5 cells (100X) (0-1/hpf); Platelet Morphology Comment Appears Adequate; Polychromasia SLIGHT = 2-3 cells (100X) (0-2/hpf)
== END 2022-05-01 21:53 | disposition home or self-care (01) ==
LOC: ERS 17:53
DX: R55 Syncope and collapse (principal); D64.9 Anemia, unspecified; I10 Essential (primary) hypertension; E11.9 Type 2 diabetes mellitus without complications; Z79.82 Long term (current) use of aspirin; Z79.899 Other long term (current) drug therapy
CPT/HCPCS: 74176; 80053; 83605; 83880; 84484; 85025; 93005

== ENCOUNTER 2023-02-03 03:48 | Emergency (ER) | payer OTHER ==
[2023-02-03] MEDS ORDERED: Acetaminophen 500 MG TAB ONE (04:24)
[2023-02-03] MEDS ORDERED: Boostrix 0.5 ML (Tdap) VIAL (>/=7 yrs of age) ONE (04:24)
[2023-02-03 04:59] LABS: #Basophils 0.1 thou/uL (0.0-0.2); #Eosinphils 0.3 thou/uL (0.0-0.7); #Monocytes 0.7 thou/uL (0.11-0.59); #Neutrophils 5.3 thou/uL (1.40-6.50); %Basophils 0.8 % (0.0-1.0); %Eosinophils 3.5 % (0.0-10.0); %Lymphocytes 17.1 % (21.0-51.0); %Monocytes 9.1 % (0.0-10.0); %Neutrophils 69.1 % (42.0-75.0); Hemoglobin 11.5 g/dL (12.0-16.0); Mean Corpuscular HGB CONC 32.9 g/dL (32.0-36.0); Mean Corpuscular Hemoglobin 30.2 pg (27.0-31.0); Mean Corpuscular Volume 91.9 fl (78.0-98.0); Mean Platelet Volume 11.3 fL (7.4-10.4); Platelet Count 101 10x3/uL (130-400); Red Blood Cell (RBC) Count 3.81 mill/uL (4.20-5.40); White Blood Cell (WBC) Count 7.7 10x3/uL (4.8-10.8)
[2023-02-03 05:29] LABS: ALT (SGPT) 7 U/L (8-55); AST (SGOT) 13 U/L (5-34); Albumin 3.4 g/dL (3.4-4.8); Alkaline Phosphatase 135 U/L (40-110); Anion Gap 10 mmol/L (10-20); BUN (Urea Nitrogen) 11 mg/dL (9.8-20.1); Bilirubin, Total 0.5 mg/dL (0.2-1.2); CK (CPK) 39 U/L (29-168); Calc. Creatinine Clearance 0 mL/min (70-130); Calcium 8.7 mg/dL (7.8-10.44); Carbon Dioxide 25 mmol/L (23-31); Chloride 109 mmol/L (98-107); Estimated GFR 88; Globulin 2.9 g/dL (2.4-3.5); Glucose 96 mg/dL (83-110); Magnesium 1.7 mg/dL (1.6-2.6); Potassium 3.7 mmol/L (3.5-5.1); Protein, Total 6.3 g/dL (5.8-8.1); Sodium 140 mmol/L (136-145)
[2023-02-03 05:33] LABS: Troponin I 0.017 ng/mL (< 0.028)
[2023-02-03 05:56] LABS: INR-International Normal Ratio 1.1; Prothrombin Time 14.1 sec (12.0-14.7)
[2023-02-03 05:57] LABS: PTT 30.7 sec (22.9-36.1)
[2023-02-03 06:18] LABS: Bacteria/HPF None Seen HPF (None Seen); Bilirubin Negative (Negative); Blood, Urine Negative (Negative); CAUTI Indications for Culture Dysuria,urgency,freq; Clarity Clear (Clear); Glucose, Urine (Dipstick) Normal (Negative); Ketone, Urine Negative (Negative); Leukocyte 25 Leu/uL (Negative); Nitrite Negative (Negative); Protein, Urine (Dipstick) Negative (Neg-Trace); RBC/HPF 0-3 HPF (0-3); Squamous Epithelial 0-3 HPF (0-3); Urobilinogen Normal mg/dL (Less than 2); WBC/HPF 0-3 HPF (0-3); pH, Urine 7.5 (5.0-9.0)
[2023-02-03 06:20] LABS: Urine Culture Reflex No No
[2023-02-03 06:30] LABS: CellaVision Operator ID LAB.JMM; Macrocytosis SLIGHT = 6-15 cells HPF (0-5); Ovalocytes SLIGHT = 2-5 cells HPF (0-1); Platelet Adequacy Comment Platelets Decreased
== END 2023-02-03 07:10 | disposition home or self-care (01) ==
LOC: ERS 03:48
DX: S01.01XA Laceration without foreign body of scalp, initial encounter (principal); I10 Essential (primary) hypertension; E11.9 Type 2 diabetes mellitus without complications; W18.30XA Fall on same level, unspecified, initial encounter
CPT/HCPCS: 12001; 70450; 71045; 72125; 72170; 80053; 81001; 82550; 83735; 83880; 84484; 85025; 85610; 85730; 90471; 90715; 93005

== ENCOUNTER 2023-12-29 19:53 | Emergency (ER) | payer OTHER ==
[2023-12-29 21:11] LABS: #Basophils 0.09 10x3/uL (0.0-0.2); %Basophils 1.1 % (0.0-1.0); %Eosinophils 5.3 % (0.0-10.0); %Lymphocytes 19.3 % (21.0-51.0); %Monocytes 10.1 % (0.0-10.0); %Neutrophils 62.3 % (42.0-75.0); Hematocrit 34.4 % (36.0-47.0); Mean Corpuscular Hemoglobin 30.1 pg (27.0-31.0); Mean Platelet Volume 10.2 fL (7.4-10.4); Platelet Count 249 10x3/uL (130-400); RBC Distribution Width 14.5 % (11.5-14.5); Red Blood Cell (RBC) Count 3.66 mill/uL (4.20-5.40)
[2023-12-29 22:00] LABS: Potassium 4.5 mmol/L (3.5-5.1); Sodium 141 mmol/L (136-145)
[2023-12-29 22:01] LABS: BUN (Urea Nitrogen) 26 mg/dL (9.8-20.1); Bilirubin, Total 0.4 mg/dL (0.2-1.2); Calc. Creatinine Clearance 0 mL/min (70-130); Calcium 8.4 mg/dL (7.6-10.4); Carbon Dioxide 22 mmol/L (23-31); Chloride 111 mmol/L (98-107); Estimated GFR 70; Glucose 116 mg/dL (83-110); Protein, Total 6.7 g/dL (5.8-8.1)
[2023-12-29 22:02] LABS: ALT (SGPT) 11 U/L (8-55); AST (SGOT) 17 U/L (5-34); Albumin 3.2 g/dL (3.4-4.8); Alkaline Phosphatase 135 U/L (40-110); Globulin 3.5 g/dL (2.4-3.5); Lipase 33 U/L (8-78)
[2023-12-29 22:03] LABS: Anion Gap 13 mmol/L (10-20)
[2023-12-29] MEDS ORDERED: Acetaminophen 500 MG TAB ONE (22:08)
[2023-12-29 22:57] LABS: PTT 29.4 sec (22.9-36.1); Prothrombin Time 13.6 sec (12.0-14.7)
== END 2023-12-30 00:51 | disposition home or self-care (01) ==
LOC: ERS 19:53
DX: S70.12XA Contusion of left thigh, initial encounter (principal); M79.605 Pain in left leg; I11.0 Hypertensive heart disease with heart failure; I50.9 Heart failure, unspecified; E11.9 Type 2 diabetes mellitus without complications; Z79.4 Long term (current) use of insulin; X58.XXXA Exposure to other specified factors, initial encounter
CPT/HCPCS: 36415; 80053; 83605; 83690; 85025; 85610; 85730